=== PATIENT | female | born 1990 | race Caucasian/White ===

== ENCOUNTER 2019-10-10 16:05 | Inpatient (IN) | payer BC ==
[~2019-10-10] VITALS: Ht 165.1 cm; Wt 70.3 kg
[~2019-10-10 16:05] MED LIST: Tri-Sprintec1 EACH PO
[2019-10-10 16:55] LABS: BASOPHILS ABSOLUTE AUTO 0.01 K/mm3 (0.00-0.23); BASOPHILS PERCENT AUTO 0 % (0-2); EOSINOPHILS ABSOLUTE AUTO 0.02 K/mm3 (0.00-0.68); EOSINOPHILS PERCENT AUTO 0 % (0-6); Hematocrit 41.1 % (33.0-51.0); Hemoglobin 13.7 g/dL (11.5-16.0); IMMATURE GRAN ABSOLUTE AUTO 0.04 K/mm3 (0.00-0.10); IMMATURE GRAN PERCENT AUTO 1 % (0-1); LYMPHOCYTES PERCENT AUTO 18 % (21-46); MONOCYTES ABSOLUTE AUTO 0.53 K/mm3 (0.16-1.47); MONOCYTES PERCENT AUTO 8 % (4-13); Mean Corpuscular HGB 31.6 pg (26.0-34.0); Mean Corpuscular HGB Conc 33.3 g/dL (31.5-36.5); Mean Corpuscular Volume 95 fL (80-100); Mean Platelet Volume 10.6 fL (9.1-12.4); NEUTROPHILS ABSOLUTE AUTO 5.04 K/mm3 (1.96-9.15); NEUTROPHILS PERCENT AUTO 74 % (41-73); Platelet Count 191 K/mm3 (150-400); RDW Coefficient Variation 12.5 % (11.7-14.2); RDW Standard Deviation 43.8 fL (35.1-46.3); Red Blood Cell Count 4.33 M/mm3 (3.80-5.20); White Blood Cell Count 6.84 K/mm3 (4.00-11.30)
[2019-10-10] MEDS ORDERED: PRENATAL TABLE1 EAC2 PO (17:01)
[2019-10-10] MEDS ORDERED: EVENING PRIMR1000 MG PO (17:02)
[2019-10-10] MEDS ORDERED: PROBIOTIC1 EAC4 PO (17:03)
--- NOTE | 2019-10-10 18:04 | NUR ---
AMBULATED TO [place] FOR DINNER WITH
--- NOTE | 2019-10-10 19:08 | NUR ---
REPORT TO PRACHI VILLALOBOS RN
--- NOTE | 2019-10-12 08:30 | NUR ---
PT IN ROOM, WORRIED ABOUT FEEDING NB, SUPER SPITTY. DISCUSSED PLAN FOR TODAY, RN TO HELP WITH EACH FEED. PAIN CONTROLLED WELL WITH PO MEDS. PLAN TO DC TOMORROW.
--- NOTE | 2019-10-12 09:06 | NUR ---
RN ROUNDED TO HELP WITH . INSTRUCT/DEM WIDENING LATCH, CORRECT POSITIONING, AND SHAPE OF NIPPLE AFTER FEED. INSTRUCT IN BOOKLET AND BROCHURE OF WHAT TO EXPECT WITH AND CHANGES IN NB DURING THE FIRST WEEK OF LIFE. NB SPITTY AND GAGGY AT THIS TIME, WILL ROUND AGAIN ON PT TODAY TO SEE IF NB HAS STRONGER DESIRE TO FEED. PT DENIES ANY FURTHER QUESTIONS OR CONCERNS.
[2019-10-12 12:39] LABS: Hematocrit 34.4 % (33.0-51.0); Hemoglobin 11.7 g/dL (11.5-16.0); Mean Corpuscular HGB 32.7 pg (26.0-34.0); Mean Corpuscular Volume 96 fL (80-100); Mean Platelet Volume 10.7 fL (9.1-12.4); Platelet Count 147 K/mm3 (150-400); RDW Coefficient Variation 12.8 % (11.7-14.2); RDW Standard Deviation 45.6 fL (35.1-46.3); Red Blood Cell Count 3.58 M/mm3 (3.80-5.20); White Blood Cell Count 11.81 K/mm3 (4.00-11.30)
--- NOTE | 2019-10-12 14:43 | NUR ---
PT SLEEPING SOUNDLY.
--- NOTE | 2019-10-12 19:41 | NUR ---
REPORT TO ONCOMING SHIFT, NO ACUTE CHANGES.
[2019-10-13] MEDS ORDERED: IBUP800 PO (07:24)
--- NOTE | 2019-10-13 08:23 | NUR ---
PATIENT ALREADY HAS [facility] PORTAL ACCOUNT
--- NOTE | 2019-10-13 10:13 | NUR ---
DISCHARGE DISCHARGE HOME STABLE. PARENTS VERBALIZE UNDERSTANDING OF DC INSTRUCTIONS AND FOLLOW UP APPOINTMENTS. NO QUESTIONS OR CONCERNS. DC HOME STABLE.
== END 2019-10-13 10:15 | disposition home or self-care (01) | DRG 807 ==
LOC: OBS 16:05 → BC 16:06 → OBS 16:11 → BC 16:12
PROVIDERS: ADMIT Advanced Practice Midwife
PROC: 10E0XZZ Delivery of Products of Conception, External Approach (ICD-10-PCS; 2019-10-10)
PROC: 3E033VJ Introduction of Other Hormone into Peripheral Vein, Percutaneous Approach (ICD-10-PCS; 2019-10-11)
PROC: 3E0R3BZ Introduction of Anesthetic Agent into Spinal Canal, Percutaneous Approach (ICD-10-PCS; 2019-10-11)
PROC: 3E0P7VZ Introduction of Hormone into Female Reproductive, Via Natural or Artificial Opening (ICD-10-PCS; principal; 2019-10-12)
PROC: 0HQ9XZZ Repair Perineum Skin, External Approach (ICD-10-PCS; 2019-10-12)
DX: O48.0 Post-term pregnancy (principal); Z37.0 Single live birth; Z3A.41 41 weeks gestation of pregnancy; O70.0 First degree perineal laceration during delivery; O77.0 Labor and delivery complicated by meconium in amniotic fluid
CPT/HCPCS: 36415; 51702; 85025; 85027; 86850; 86900; 86901; J1885; J2001; J2590; J3010; J7120

== ENCOUNTER → 2021-01-23 | Outpatient (CLI) | payer BC ==
[~2021-01-23] MED LIST changes: +EVENING PRIMR1000 MG PO; +IBUP800 PO; +PRENATAL TABLE1 EAC2 PO; +PROBIOTIC1 EAC4 PO
== END | disposition home or self-care (01) ==
LOC: LAB 12:07 → LAB SHORT 12:07
DX: L98.9 Disorder of the skin and subcutaneous tissue, unspecified (principal)
CPT/HCPCS: 88305; 88312

== ENCOUNTER 2021-12-13 15:55 | Inpatient (IN) | payer BC ==
[~2021-12-13] VITALS: Ht 165.1 cm; Wt 72.0 kg
[2021-12-13 17:09] LABS: BASOPHILS ABSOLUTE AUTO 0.03 K/mm3 (0.00-0.23); BASOPHILS PERCENT AUTO 0 % (0-2); EOSINOPHILS ABSOLUTE AUTO 0.02 K/mm3 (0.00-0.68); EOSINOPHILS PERCENT AUTO 0 % (0-6); Hematocrit 44.2 % (33.0-51.0); Hemoglobin 15.1 g/dL (11.5-16.0); IMMATURE GRAN ABSOLUTE AUTO 0.08 K/mm3 (0.00-0.10); IMMATURE GRAN PERCENT AUTO 1 % (0-1); LYMPHOCYTES ABSOLUTE AUTO 1.54 K/mm3 (0.84-5.20); LYMPHOCYTES PERCENT AUTO 18 % (21-46); MONOCYTES ABSOLUTE AUTO 0.51 K/mm3 (0.16-1.47); MONOCYTES PERCENT AUTO 6 % (4-13); Mean Corpuscular HGB 32.1 pg (26.0-34.0); Mean Corpuscular HGB Conc 34.2 g/dL (31.5-36.5); Mean Corpuscular Volume 94 fL (80-100); Mean Platelet Volume 10.9 fL (9.1-12.4); NEUTROPHILS ABSOLUTE AUTO 6.29 K/mm3 (1.96-9.15); NEUTROPHILS PERCENT AUTO 74 % (41-73); Platelet Count 196 K/mm3 (150-400); RDW Standard Deviation 45.1 fL (35.1-46.3); White Blood Cell Count 8.47 K/mm3 (4.00-11.30)
--- NOTE | 2021-12-13 20:00 | NUR ---
Patient is sitting in bed. No needs at this time.
[2021-12-15] MEDS ORDERED: IBUP800 (15:37)
== END 2021-12-15 16:50 | disposition home or self-care (01) | DRG 807 ==
LOC: BC 15:55 → OBS 15:55 → BC 15:57 → OBS 16:03 → BC 16:04
PROVIDERS: ADMIT Nurse Practitioner Obstetrics & Gynecology
PROC: 10E0XZZ Delivery of Products of Conception, External Approach (ICD-10-PCS; principal; 2021-12-14)
PROC: 3E0P7VZ Introduction of Hormone into Female Reproductive, Via Natural or Artificial Opening (ICD-10-PCS; 2021-12-14)
PROC: 10907ZC Drainage of Amniotic Fluid, Therapeutic from Products of Conception, Via Natural or Artificial Opening (ICD-10-PCS; 2021-12-14)
PROC: 3E0R3BZ Introduction of Anesthetic Agent into Spinal Canal, Percutaneous Approach (ICD-10-PCS; 2021-12-14)
PROC: 00HU33Z Insertion of Infusion Device into Spinal Canal, Percutaneous Approach (ICD-10-PCS; 2021-12-14)
DX: O48.0 Post-term pregnancy (principal); Z37.0 Single live birth; Z3A.40 40 weeks gestation of pregnancy; O77.0 Labor and delivery complicated by meconium in amniotic fluid; O69.81X0 Labor and delivery complicated by cord around neck, without compression, not applicable or unspecified; Z88.5 Allergy status to narcotic agent; Z79.899 Other long term (current) drug therapy
CPT/HCPCS: 36415; 51702; 59025; 85025; 86850; 86900; 86901; A9270; J1885; J2001; J2210; J2590; J3010; J7120

== ENCOUNTER 2024-01-30 14:40 | Emergency (ER) | payer BC ==
[~2024-01-30] VITALS: Ht 165.1 cm; Wt 54.4 kg
[~2024-01-30 14:40] MED LIST changes: +CEPH500 PO; +IBUP800
[2024-01-30 14:42] VITALS: BP 143/110
[2024-01-30] MEDS ORDERED: Tetracaine HCl/Pf 0.5% Opth Soln 4 ml RIGHTEYE ONE (15:05)
[2024-01-30] MEDS ORDERED: Fluorescein Sod 1MG Opth Strips RIGHTEYE ONE (15:05)
[2024-01-30] MEDS ORDERED: ACYC400 PO (15:29)
== END 2024-01-30 15:38 | disposition home or self-care (01) ==
LOC: ER 14:40
DX: H16.9 Unspecified keratitis (principal); B00.59 Other herpesviral disease of eye; Z88.5 Allergy status to narcotic agent
CPT/HCPCS: 99283; A9270

== ENCOUNTER → 2024-06-18 | Outpatient (CLI) | payer BC ==
[~2024-06-18] MED LIST changes: +ACYC400 PO
[2024-06-18 13:36] LABS: BASOPHILS ABSOLUTE AUTO 0.03 K/mm3 (0.00-0.23); BASOPHILS PERCENT AUTO 1 % (0-2); EOSINOPHILS ABSOLUTE AUTO 0.07 K/mm3 (0.00-0.68); EOSINOPHILS PERCENT AUTO 3 % (0-6); Hemoglobin 13.7 g/dL (11.5-16.0); IMMATURE GRAN PERCENT AUTO 0 % (0-1); LYMPHOCYTES ABSOLUTE AUTO 0.98 K/mm3 (0.84-5.20); LYMPHOCYTES PERCENT AUTO 35 % (21-46); MONOCYTES ABSOLUTE AUTO 0.25 K/mm3 (0.16-1.47); MONOCYTES PERCENT AUTO 9 % (4-13); Mean Corpuscular HGB 31.1 pg (26.0-34.0); Mean Corpuscular HGB Conc 34.3 g/dL (31.5-36.5); Mean Corpuscular Volume 91 fL (80-100); NEUTROPHILS ABSOLUTE AUTO 1.48 K/mm3 (1.96-9.15); NEUTROPHILS PERCENT AUTO 53 % (41-73); Platelet Count 210 K/mm3 (150-400); RDW Coefficient Variation 11.7 % (11.7-14.2); RDW Standard Deviation 38.7 fL (35.1-46.3); White Blood Cell Count 2.81 K/mm3 (4.00-11.30)
== END | disposition home or self-care (01) ==
LOC: LAB SHORT 08:59 → LAB 08:59
PROVIDERS: Nurse Practitioner Family
DX: D72.829 Elevated white blood cell count, unspecified (principal); E80.7 Disorder of bilirubin metabolism, unspecified; R53.1 Weakness; R53.83 Other fatigue
CPT/HCPCS: 85025; 85060; 85651